=== PATIENT | male | born 1945 | race Caucasian/White ===

== ENCOUNTER 2020-08-07 01:29 | Emergency (ER) | payer MEDICARE, OTHER ==
[2020-08-07] MEDS ORDERED: HYDROmorphone 0.5 MG/0.5 ML Syringe IM ONE (02:05)
[2020-08-07] MEDS ORDERED: Ketorolac 30 MG/ML SDV IM ONE (02:05)
[2020-08-07] MEDS ORDERED: Methocarbamol 500 MG Tab PO ONE (02:05)
--- NOTE | 2020-08-07 02:14 | EDM.PDOC ---
ED HPI GENERAL MEDICAL PROBLEM - General Chief Complaint: Back Pain or Injury Stated Complaint: BACK PAIN Time Seen by Provider: 08/07/20 02:04 Source of Information: Reports: Patient, Old Records History Limitations: Reports: No Limitations - History of Present Illness INITIAL COMMENTS - FREE TEXT/NARRATIVE: Liu is a 74-year-old male presenting to the ED for evaluation of acute on chronic low back pain. Patient reports that he has had issues with his back for quite some time but he normally sees his son in [place] who is a chiropractor who does manipulation on him. He reports that over the last 2 nights he has not been able to sleep because of the degree of back pain. He reports that he days ago he had to drive to the [place] [facility] the [facility] from [facility] to put his mother into a intermediate. Then he drove back home [facility]. 2 days ago he drove 3 hours plus up to his cabin in [place] and since then he has had significant back spasm causing pain. He saw one of his friends in the area who is a chiropractor who attempted manipulation last night, however, he was too tense and tender and was not able to tolerate the manipulation so it was discontinued. He does report that he took a tramadol 50 mg about an hour ago and took ibuprofen 600 mg about 8 hours ago. Neither of these have helped his symptoms. The patient is also been undergoing a work-up of hematuria and prostatic hypertrophy and is scheduled to undergo a cystoscopy with shaving of the state and removal of bladder stones. 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 Patient denies any loss of bowel or bladder control, saddle anesthesia, or loss of strength in the legs. Lower Back Pain Score (Numeric/FACES): 10 - Related Data Allergies Allergy/AdvReac Type Severity Reaction Status Date / Time doxycycline Allergy Rash Verified 08/07/20 01:39 Home Meds: Home Meds Tamsulosin [Tamsulosin 24 Hr] 0.4 mg PO DAILY 08/07/20 [History] methocarbamoL [Methocarbamol] 750 mg PO Q6H PRN #30 tablet 08/07/20 [Rx] Past Medical History HEENT History: Reports: Hard of Hearing Gastrointestinal History: Reports: Colon Polyp Genitourinary History: Reports: Prostate Disorder, Other (See Below) Other Genitourinary History: stones in bladder Musculoskeletal History: Reports: Back Pain, Chronic Neurological History: Reports: Other (See Below) Other Neuro History: L5 "goes out" - Infectious Disease History Infectious Disease History: Reports: Chicken Pox, Measles, Novel Coronavirus - Past Surgical History GI Surgical History: Reports: Colonoscopy, Polypectomy Social & Family History - Tobacco Use Tobacco Use Status *Q: Never Tobacco User - Recreational Drug Use Recreational Drug Use: No ED ROS GENERAL - Review of Systems Review Of Systems: See Below Constitutional: Reports: No Symptoms HEENT: Reports: No Symptoms Respiratory: Reports: No Symptoms Cardiovascular: Reports: No Symptoms Endocrine: Reports: No Symptoms GI/Abdominal: Reports: No Symptoms : Reports: No Symptoms Musculoskeletal: Reports: Back Pain (Acute on chronic low back pain worsening over the last 2 days. Possibly brought on by excessive driving in the vehicle over the last 2 to 3 days.), Muscle Pain, Muscle Stiffness (Lumbar paraspinal muscles) Skin: Reports: No Symptoms Neurological: Reports: Difficulty Walking (Due to the low back pain and muscle spasm) Psychiatric: Reports: Anxiety Hematologic/Lymphatic: Reports: No Symptoms Immunologic: Reports: No Symptoms ED EXAM,LOWER BACK PAIN/INJURY - Physical Exam Exam: See Below Exam Limited By: No Limitations General Appearance: Alert, Anxious, Moderate Distress Head: Atraumatic, Normocephalic Neck: Normal Inspection, Supple Back Exam: Decreased Range of Motion, Muscle Spasm (Very significant bilateral paraspinal muscle spasm in the lower thoracic and entire lumbar spine), Paraspinal Tenderness (Tenderness to palpation over the paraspinal muscles in the lateral lower thoracic and bilateral lumbar spine). No: Vertebral Tenderness Extremities: Normal Inspection Neurological: Alert, Normal Mood/Affect, No Motor/Sensory Deficits, Oriented x 3, Difficulty Walking (Antalgic gait). No: Saddle Anesthesia Psychiatric: Anxious Skin Exam: Warm, Dry Course - Vital Signs Last Recorded V/S: Last Vital Signs Temp 36.4 C 08/07/20 01:50 Pulse 102 H 08/07/20 01:50 Resp 24 H 08/07/20 01:50 BP 157/78 H 08/07/20 01:50 Pulse Ox 95 08/07/20 01:50 - Orders/Labs/Meds Meds: Medications Discontinued Medications Generic Name Dose Route Start Last Admin Trade Name Freq PRN Reason Stop Dose Admin Hydromorphone HCl 0.5 mg 08/07/20 02:05 08/07/20 02:11 Dilaudid IM 08/07/20 02:06 0.5 mg ONETIME ONE Administration Ketorolac Tromethamine 30 mg 08/07/20 02:05 08/07/20 02:11 Toradol IM 08/07/20 02:06 30 mg ONETIME ONE Administration Methocarbamol 1,000 mg 08/07/20 02:05 08/07/20 02:11 Robaxin PO 08/07/20 02:06 1,000 mg ONETIME ONE Administration - Re-Assessments/Exams Free Text/Narrative Re-Assessment/Exam: 08/07/20 03:08 The patient received methocarbamol 1000 mg by mouth, Toradol 30 mg IM and Dilaudid 0.5 mg IM with marked improvement in his symptoms. He is more relaxed and the muscle spasm has declined significantly. We will continue him on methocarbamol 750 mg 4 times daily as needed for muscle spasm. He may continue that he uses Motrin and tramadol as before. Indications return to the ED were discussed. At this time he is suitable for discharge home in satisfactory condition. Departure - Departure Time of Disposition: 03:10 Disposition: Home, Self-Care 01 Condition: Fair Clinical Impression: Acute exacerbation of chronic low back pain - Discharge Information Prescriptions: methocarbamoL [Methocarbamol] 750 mg PO Q6H PRN #30 tablet PRN Reason: Muscle Spasm Instructions: Chronic Back Pain, [id number], Managing Pain Without Opioids Referrals: PCP,None [Primary Care Provider] - Forms: ED Department Discharge Care Plan Goals: I have a prescription for you for methocarbamol 750 mg 4 times a day as needed to control the muscle spasms. You may continue to take your tramadol and ibuprofen as before which will help with the pain. Good luck with your upcoming intervention for the prostate. Sepsis Event Note (ED) - Evaluation Sepsis Screening Result: No Definite Risk - Focused Exam Vital Signs: Vital Signs Temp Pulse Resp BP Pulse Ox 08/07/20 01:50 36.4 C 102 H 24 H 157/78 H 95 - Problem List & Annotations (1) Acute exacerbation of chronic low back pain SNOMED Code(s): 778828615 Code(s): M54.5 - LOW BACK PAIN; G89.29 - OTHER CHRONIC PAIN Status: Acute Priority: Medium Current Visit: Yes - Problem List Review Problem List Initiated/Reviewed/Updated: Yes
== END 2020-08-07 03:24 | disposition home or self-care (01) ==
LOC: JP.ED 01:29
DX: M54.5 Low back pain (principal); G89.29 Other chronic pain; N42.9 Disorder of prostate, unspecified; Z88.1 Allergy status to other antibiotic agents; Z79.899 Other long term (current) drug therapy
CPT/HCPCS: 96372; 99283; A9270; J1170; J1885

== ENCOUNTER 2022-03-19 08:30 | Emergency (ER) | payer MEDICARE ==
[2022-03-19] MEDS ORDERED: Lidocaine 1% 5 ML VIAL ONE (08:45)
== END 2022-03-19 09:03 | disposition home or self-care (01) ==
LOC: JP.ED 08:30
DX: S30.861A Insect bite (nonvenomous) of abdominal wall, initial encounter (principal)
CPT/HCPCS: 99281

== ENCOUNTER 2024-07-01 09:23 | Emergency (ER) | payer MEDICARE | END 2024-07-01 11:41 | disposition home or self-care (01) | LOC: JP.ED 09:23 | DX: S06.0X0A Concussion without loss of consciousness, initial encounter (principal); I10 Essential (primary) hypertension; Z88.8 Allergy status to other drugs, medicaments and biological substances; Z79.899 Other long term (current) drug therapy; W11.XXXA Fall on and from ladder, initial encounter; Y93.89 Activity, other specified | CPT/HCPCS: 70450; 70450-26; 99283 ==